=== PATIENT | female | born 1950 | race Caucasian/White ===

== ENCOUNTER → 2019-11-11 | Outpatient (CLI) | payer OTHER ==
[~2019-11-11] MED LIST: ALBUTEROL INHAL17 GM IH; ALBUTEROL INHALER; ALBUTEROL SULFAT2 MG PO; ALBUTEROL2.5 MG/0.5 INH; ALEVE220 MG PO; AMBEREN PO; AMBIEN CR; ANAPROX PO; APAP; ASPIRIN; ASPIRIN325; ASPIRIN325 PO; ATIVAN0.5 MG PO; AVELOX 400 MG400 MG PO; AZITHROMYCIN PO; AZOR 10-20 MG1 EACH; CARAFATE 1 GM TA1 G1 PO; CARVEDILOL6.25 MG PO; CEFPODOXIME PR200 M1 PO; CELEXA40 MG PO; CIPRO250 M1; DESYREL150 MG PO; DIOVAN 80 MG TA80 M1 PO; DUONEB 2.5-0.5 M3 ML IH; EFFEXOR XR37.5 MG PO; GABAPENTIN300 MG PO; HYDROCODON-ACE1 EAC5 PO; HYDROCODONE BIT; L-THYROXINE OR; LANTUS SC; LASIX 20 MG TAB20 MG PO; LEVOTHYROXINE0.05 MG PO; LEVSIN; LEXAPRO 10 MG T10 MG PO; LORAZEPAM 0.50.5 MG PO; MACRODANTIN100 MG; METOCLOPRAMIDE10 MG; MICARDIS HCT 81 EACH PO; MOBIC7.5 MG PO; MS CONTIN 30 MG30 M1 PO; NEURONTIN 300300 M1 PO; NIACIN ER750 MG PO; NIASPAN750 MG PO; NOVALOG SC; NOVOLOG FL100 UNIT/M SC; NOVOLOG100 UNIT/1 SC; Naprosyn PO; OXYCONTIN10 M1 PO; PHENERGAN 25 MG25 M1; PREDNISONE 10 M10 M1 PO; PREDNISONE 5 MG5 M1 PO; PROTONIX; PROTONIX40 M2; SEE ATTACHED SHEET.; SIMVASTATIN40 MG PO; SINGULAIR 10 MG10 M1 PO; SYMBICORT160 MCG/4. INH; SYNTHROID25 MCG; TIZANIDINE HCL4 MG PO; TRAZODONE 150150 M1 PO; ZANAFLEX4 M1 PO
== END ==
LOC: M.ULTRA 14:20
PROVIDERS: ATTEND Nurse Practitioner Family
DX: M79.89 Other specified soft tissue disorders (principal); M79.604 Pain in right leg